=== PATIENT | female | born 1955 | race Two or more races ===

== ENCOUNTER 2024-12-01 06:14 | Day surgery (SDC) | payer OTHER ==
[2024-11-28 16:07] VITALS: BMI 27.6
[2024-12-01] MEDS ORDERED: VANCOMYCIN 1,000 MG VIAL (RESTRICTED TO ID ONLY) ONE (07:09)
[2024-12-01] MEDS ORDERED: BUPIVACAINE HCL/PF 0.5% (5 MG/ML) 30 ML VIAL IJ ONE (07:29)
[2024-12-01] MEDS ORDERED: BUPIVACAINE LIPOSOME/PF (EXPAREL) 266 MG/20 ML VIAL ONE (07:29)
[2024-12-01] MEDS ORDERED: BUPIVACAINE HCL/PF 0.5% (5MG/ML) 10 ML VIAL ONE (07:29)
[2024-12-01] MEDS ORDERED: MIDAZOLAM HCL 2 MG/2 ML SINGLE DOSE VIAL ONE (07:29)
[2024-12-01] MEDS ORDERED: ceFAZolin SODIUM 1 GM VIAL ONE (07:47)
[2024-12-01] MEDS ORDERED: SUCCINYLCHOLINE CHLORIDE 200 MG/10 ML SYRINGE ONE (08:01)
[2024-12-01] MEDS ORDERED: PROPOFOL 20 ML ONE (08:01)
[2024-12-01] MEDS ORDERED: BUPIVICAINE 0.25%/MORPH PF/KETOROLAC - 51ML DISP.SYRINGE IA ONE (08:32)
[2024-12-01] MEDS: VANCOMYCIN 1,000 MG VIAL (RESTRICTED TO ID ONLY) IVPB ONE (09:00)
[2024-12-01] MEDS: BUPIVICAINE 0.25%/MORPH PF/KETOROLAC - 51ML DISP.SYRINGE IA ONE ×2 (09:08)
[2024-12-01] MEDS ORDERED: ONDANSETRON 4 MG/2 ML VIAL IVPUSH PRN ×2 (09:21→09:34)
[2024-12-01] MEDS ORDERED: LACTATED RINGERS SOLUTION 1,000 ML IV SCH (09:30)
[2024-12-01] MEDS ORDERED: MAG HYDROX/AL HYDROX/SIMETH 30 ML UNIT-DOSE CUP PO PRN (09:34)
[2024-12-01] MEDS: ACETAMINOPHEN 1000 MG/100 ML BAG IVPB PRN (09:45)
[2024-12-01] MEDS ORDERED: CHOLECALCIFEROL (VIT D3) 1,000 UNIT (25 MCG) TABLET PO SCH (09:45)
[2024-12-01] MEDS ORDERED: ACETAMINOPHEN INJECTION 100 ML ONE (09:49)
[2024-12-01] MEDS ORDERED: GABAPENTIN 100 MG PO SCH (10:00)
[2024-12-01] MEDS: PANTOPRAZOLE 40 MG TABLET PO SCH (12:44)
[2024-12-01] MEDS: SENNOSIDES/DOCUSATE COMBO (SENNA PLUS) TABLET (UD) PO SCH (12:44)
[2024-12-01] MEDS: MULTIVITAMINS (DAILY MVI) TABLET (FP) PO SCH (12:44)
[2024-12-01] MEDS: LACTATED RINGERS SOLUTION 1,000 ML IV SCH (12:44)
[2024-12-01] MEDS: GABAPENTIN 300 MG CAPSULE PO SCH (12:44)
[2024-12-01] MEDS: oxyCODONE HCL 5 MG TABLET PO PRN ×2 (14:51→19:26)
[2024-12-01] MEDS: CEFAZOLIN 2 GM/D5W 2 GRAM/50 ML ML IVPB SCH (17:07)
[2024-12-01] MEDS: ACETAMINOPHEN 325 MG TABLET (FP) PO PRN (18:33)
[2024-12-01] MEDS: ATORVASTATIN CA 20 MG TABLET (FP) PO SCH (21:03)
[2024-12-02 07:14] LABS: HEMATOCRIT 37.3 % (34.1-44.9); MCHC 32.2 g/dl (32.2-35.5); MEAN CELL VOLUME 98.9 fl (79.4-94.8); MEAN PLT VOLUME 9.6 fl (9.4-12.3); PLATELET COUNT 205 x10^3/uL (182-369); RDW 11.9 % (12.4-16.4)
[2024-12-02 07:53] LABS: CALCIUM 9.3 mg/dl (8.5-10.1); CREATININE 0.8 mg/dl (0.6-1.3); POTASSIUM 4.7 mmol/L (3.5-5.1)
[2024-12-02] MEDS: ASPIRIN COATED 81 MG TABLET.EC PO SCH (09:31)
[2024-12-02] MEDS: metoPROLOL SUCCINATE 25 MG TAB.SR.24H (FP) PO SCH (09:32)
[2024-12-02] MEDS: CLOPIDOGREL BISULFATE 75 MG TABLET (FP) PO SCH (09:32)
[2024-12-02 14:33] VITALS: TEMP 98.5
[2024-12-02 18:21] VITALS: BP 115/59; PULSE 73; RESP 19
== END 2024-12-02 19:00 | disposition home health service (06) ==
LOC: FASUSAT 06:14 → FM/S 10:28 → FASUSAT 12-02 19:00
PROVIDERS: ATTEND Orthopaedic Surgery Sports Medicine
PROC: 8E0Y0CZ Robotic Assisted Procedure of Lower Extremity, Open Approach (ICD-10-PCS; 2024-12-01)
PROC: 0SRC0JA Replacement of Right Knee Joint with Synthetic Substitute, Uncemented, Open Approach (ICD-10-PCS; principal; 2024-12-01 08:17)
DX: M17.11 Unilateral primary osteoarthritis, right knee (principal)
CPT/HCPCS: 20985; 27447; C1776; S2900; 36415; 73560-TC-RT-FY; 80048; 85027; 88305-TC; 88311-TC; 94760; 97010-GP; 97110-GP; 97116-GP; 97162-GP; J0666